=== PATIENT | male | born 1990 | race Caucasian/White ===

== ENCOUNTER 2020-10-23 15:26 | Inpatient (IN) | payer OTHER, SELFPAY ==
[2020-10-23] VITALS (7 sets, daily range): BP systolic 134–146; BP diastolic 83–118; PULSE 88–128; RESP 12–21; TEMP 36.4–36.8; O2SAT 98–100; BMI 24.2; BMI 23.3
[2020-10-23 15:48] LABS: Add Manual Diff / Slide Review NO; Basophils Absolute Auto 100 /uL (0-100); Basophils Percent Auto 0.5 % (0-2); Eosinophils Absolute Auto 100 /uL (0-450); Eosinophils Percent Auto 0.8 % (2-4); Hemoglobin 12.8 g/dL (13.5-17.5); Lymphocytes Absolute Auto 1500 /uL (1100-4500); Lymphocytes Percent Auto 11.1 % (25-40); Mean Corpuscular Hemoglobin 22.5 PG (26-34); Mean Corpuscular Volume 70.1 fL (80-100); Monocytes Absolute Auto 1200 /uL (0-900); Monocytes Percent Auto 8.5 % (3-14); Neutrophils Absolute Auto 10700 /uL (1500-7000); Neutrophils Percent Auto 79.1 % (50-75); Platelet Count 531 X10^3/uL (150-400); Red Cell Distribution Width 16.3 % (11.6-14.8); White Blood Cell Count 13.6 X10^3/uL (4.5-11.0)
[2020-10-23 16:00] LABS: Alanine Aminotransferase 18 IU/L (<50); Albumin 4.2 g/dL (3.5-5.0); Albumin Globulin Ratio 1.2 (1.0-2.8); Alkaline Phosphatase 69 U/L (38-126); Aspartate Aminotransferase 28 IU/L (17-59); Bilirubin Total 0.8 mg/dL (0.2-1.3); Blood Urea Nitrogen 10 mg/dL (9-20); Calcium 9.9 mg/dL (8.4-10.2); Carbon Dioxide 27 mmol/L (22-32); Chloride 95 mmol/L (98-107); Estimated Glomerular Filt Rate > 60.0 mL/min (>60); Globulin 3.4 g/dL (1.7-4.1); Glucose 107 mg/dL (70-100); HEMOLYSIS < 15 (0-50); Lipase 68 U/L (23-300); Potassium 4.3 mmol/L (3.4-5.1); Sodium 135 mmol/L (137-145); Total Protein 7.6 g/dL (6.3-8.2)
--- NOTE | 2020-10-23 16:05 | DI.RAD.S_ITS ---
PROCEDURE: XR ACUTE ABDOMEN SERIES INDICATIONS: abdominal pain TECHNIQUE: One view chest and two views of the abdomen were acquired. COMPARISON: None. FINDINGS: Surgical changes and devices: None. Chest: Lungs are clear. Heart size is normal. No pleural effusions. No pneumoperitoneum. Abdomen: Bowel gas pattern is normal. No suspicious calcifications. Visualized solid organ contours appear normal. Bones: No suspicious bony lesions. IMPRESSION: A nonobstructive bowel gas pattern is seen. If clinically appropriate, please consider a repeat plain film study or a dedicated CT of the abdomen and pelvis, if the patient's symptoms persist or worsen. Clear lungs. Dictated by: Dylan Teresa M.D. on 10/23/2020 at 15:18 Approved by: Dylan Teresa M.D. on 10/23/2020 at 15:20
[2020-10-23] MEDS: PANTOPRAZOLE 40 MG VIAL IV (16:16)
--- NOTE | 2020-10-23 18:07 | ED.ABDPAIN ---
HPI - Abdominal Pain General Chief Complaint: Abdominal Pain Stated Complaint: stomach issues/clenching pain Time Seen by Provider: 10/23/20 15:26 Source: patient Mode of arrival: Ambulatory Limitations: no limitations History of Present Illness HPI narrative: Patient is a 30-year-old male with history of acid reflux presenting with 3-4 days of abdominal pain and cramping. Says the last 2 is has gotten significantly worse. He has had decrease in appetite. It is in the center of his abdomen nonradiating. He sometimes is nauseated but no vomiting he had a normal bowel movement yesterday. He took some Tylenol a few days ago to see if it would help it has not and he has been taking some antacid medication to see if that would help his reflux which also has not. He denies any fever or chills. he is sometimes dizzy. Denies any chest pain MD complaint: abdominal pain Onset (ago): day(s) Related Data Allergies Allergy/AdvReac Type Severity Reaction Status Date / Time No Known Drug Allergies Allergy Verified 10/23/20 15:34 Review of Systems Review of Systems Narrative: GENERAL: Denies chills, fatigue, malaise, fever, sweats, travel HEENT: Denies sinus pain, ear pain, sore throat, difficulty swallowing, neck pain RESPIRATORY: Denies dyspnea, cough, wheezing, hemoptysis, sputum. CARDIOVASCULAR: Denies chest pain, palpitations, orthopnea, edema GASTROINTESTINAL: See HPI : Denies dysuria, frequency, incontinence, hematuria, urinary retention, flank pain. MUSCULOSKELETAL: Denies weakness, joint pain, or bony pain SKIN: No rash, no erythema, no pruritus NEUROLOGIC: Denies weakness, dizziness, headache, numbness, change in speech, confusion PSYCHIATRIC: No concerning psychosocial issues. 12 point review of systems is negative except for those stated above and HPI Patient History Medical History GERD (gastroesophageal reflux disease) Social History household members: spouse Smoking Status: Never smoker Smoking Status: Unknown if ever smoked alcohol intake frequency: 3 or more drinks per day Substance Use Type: does not use Exam Initial Vital Signs Initial Vital Signs: Vital Signs Temperature 97.7 F 10/23/20 15:34 Pulse Rate 118 H 10/23/20 15:34 Respiratory Rate 14 10/23/20 15:34 Blood Pressure 146/118 H 10/23/20 15:34 Pulse Oximetry 99 10/23/20 15:34 GENERAL: Well appearing 30-year-old male and in no acute distress. HEENT: Head atraumatic,EOMI, pupils reactive, face symmetric, moist mucous membranes CARDIOVASCULAR: Tachycardic regular no murmurs RESPIRATORY: Breath sounds equal bilaterally, no wheezes rales or rhonchi. ABDOMEN: Soft, periumbilical tenderness, no guarding around the Maldonado sign EXTREMITIES: Normal range of motion, no clubbing or edema. Neurovascularly intact NEUROLOGICAL: Alert and oriented x4.Normal gait and speech. SKIN: Warm, dry, no laceration, no petechiae, no rashes or lesions. Course Orders Ordered: ED Orders 10/23/20 15:30 Lactate (Lactic Acid) Stat 10/23/20 15:36 EKG-12 Lead Stat 10/23/20 15:39 Complete Blood Count AUTO DIFF Stat Comprehensive Metabolic Panel Stat Lipase Stat 10/23/20 16:05 XR acute abdomen series Stat 10/23/20 18:07 CT abdomen pelvis w con Stat 10/23/20 18:40 Urine Microscopic Stat 10/23/20 19:28 COVID19 - ADMIT ([employer] swab/PCR) Stat Acetaminophen (Acetaminophen 325 Mg Tablet) 650 mg PO Q6HR PRN PRN Reason: Fever/Mild Pain (1-3) Hydrocodone Bitart/Acetaminophen (Hydrocodone/Acet 5/325 Tablet) 1 tab PO Q4HR PRN PRN Reason: Pain, Moderate (4-6) Heparin Sodium (Porcine) (Heparin 5,000 Unit/Ml Vial) 5,000 unit SUBCUT BID [facility] Last Admin: 10/23/20 21:40 Dose: 5,000 unit Documented by: CHITRA Hydromorphone HCl (Hydromorphone 0.5 Mg Inj) 0.5 mg IV Q6H PRN PRN Reason: Pain, Moderate (4-6) Last Admin: 10/23/20 22:38 Dose: 0.5 mg Documented by: CHITRA Lactated Ringer's (Lactated Ringers) 1,000 mls @ 125 mls/hr IV CONT [facility] Last Infusion: 10/23/20 20:48 Dose: 125 mls/hr Documented by: Admin: 10/23/20 20:22 Dose: 125 mls/hr Documented by: ADELSO Levofloxacin (Levaquin) 500 mg in 100 mls @ 100 mls/hr IV Q24H [facility] Last Admin: 10/23/20 21:40 Dose: 100 mls/hr Documented by: CHITRA Ibuprofen (Ibuprofen 600 Mg Tablet) 600 mg PO Q6HR PRN PRN Reason: Fever/Mild Pain (1-3) Naloxone HCl (Naloxone 0.4 Mg/Ml Vial) 0.2 mg IV Q2MIN PRN PRN Reason: Opiate Reversal Pantoprazole Sodium (Pantoprazole Dr 20 Mg Tablet) 20 mg PO 0600 [facility] Discontinued Medications Sodium Chloride (Normal Saline 0.9%) 1,000 mls @ 1,000 mls/hr IV BOLUS ONE Stop: 10/23/20 19:06 Last Infusion: 10/23/20 19:39 Dose: 0 mls/hr Documented by: Admin: 10/23/20 18:14 Dose: 1,000 mls/hr Documented by: VANESSA Ketorolac Tromethamine (Ketorolac 30 Mg/Ml Vial) 30 mg IV NOW ONE Stop: 10/23/20 18:08 Last Admin: 10/23/20 18:13 Dose: 30 mg Documented by: VANESSA Pantoprazole Sodium (Pantoprazole 40 Mg Vial) 40 mg IV NOW ONE Stop: 10/23/20 16:06 Last Admin: 10/23/20 16:16 Dose: 40 mg Documented by: MOIRAFF Vital Signs Vital signs: Vital Signs - 8 hr 10/23/20 16:53 10/23/20 17:00 10/23/20 17:30 Pulse Rate 106 H 128 H 98 H Respiratory Rate 20 21 12 Blood Pressure 134/83 141/104 H Pulse Oximetry 100 100 100 10/23/20 18:00 Pulse Rate 106 H Respiratory Rate 19 Blood Pressure 143/110 H Pulse Oximetry 100 MDM - Abdominal Pain Lab Data Attestation: I reviewed the patient's lab results. Result diagrams: 10/23/20 15:39 10/23/20 15:39 Labs: Lab Results 10/23/20 10/23/20 10/23/20 Range/Units 15:30 15:39 15:39 WBC 13.6 H (4.5-11.0) X10^3/uL RBC 5.70 (4.5-5.9) X10^6/uL Hgb 12.8 L (13.5-17.5) g/dL Hct 40.0 L (41-53) % MCV 70.1 L (80-100) fL MCH 22.5 L (26-34) PG MCHC 32.0 (30-36) % RDW 16.3 H (11.6-14.8) % Plt Count 531 H (150-400) X10^3/uL Neut % (Auto) 79.1 H (50-75) % Lymph % (Auto) 11.1 L (25-40) % Arthur % (Auto) 8.5 (3-14) % Eos % (Auto) 0.8 L (2-4) % Baso % (Auto) 0.5 (0-2) % Neut # (Auto) 77645 H (7362-5814) /uL Lymph # (Auto) 1500 (7637-2087) /uL Arthur # (Auto) 1200 H (0-900) /uL Eos # (Auto) 100 (0-450) /uL Baso # (Auto) 100 (0-100) /uL Sodium 135 L (137-145) mmol/L Potassium 4.3 (3.4-5.1) mmol/L Chloride 95 L (98-107) mmol/L Carbon Dioxide 27 (22-32) mmol/L BUN 10 (9-20) mg/dL Creatinine 0.77 (0.66-1.25) mg/dL Estimated GFR > 60.0 (>60) mL/min BUN/Creatinine Ratio 13.0 (6-22) Glucose 107 H (70-100) mg/dL Lactate 1.9 (0.7-2.1) mmol/L Calcium 9.9 (8.4-10.2) mg/dL Total Bilirubin 0.8 (0.2-1.3) mg/dL AST 28 (17-59) IU/L ALT 18 (<50) IU/L Alkaline Phosphatase 69 (38-126) U/L Total Protein 7.6 (6.3-8.2) g/dL Albumin 4.2 (3.5-5.0) g/dL Globulin 3.4 (1.7-4.1) g/dL Albumin/Globulin Ratio 1.2 (1.0-2.8) Lipase 68 (23-300) U/L Urine RBC (0-5/HPF) Urine WBC (0-5/HPF) Ur Squamous Epith Cells (0-5/HPF) Calcium Oxalate Crystal Amorphous Sediment Urine Bacteria (None) Urine Mucus (Negative) Ur Culture Indicated? SARS-CoV-2 (PCR) (Negative) 10/23/20 10/23/20 Range/Units 18:40 19:28 WBC (4.5-11.0) X10^3/uL RBC (4.5-5.9) X10^6/uL Hgb (13.5-17.5) g/dL Hct (41-53) % MCV (80-100) fL MCH (26-34) PG MCHC (30-36) % RDW (11.6-14.8) % Plt Count (150-400) X10^3/uL Neut % (Auto) (50-75) % Lymph % (Auto) (25-40) % Arthur % (Auto) (3-14) % Eos % (Auto) (2-4) % Baso % (Auto) (0-2) % Neut # (Auto) (4607-8720) /uL Lymph # (Auto) (5059-2234) /uL Arthur # (Auto) (0-900) /uL Eos # (Auto) (0-450) /uL Baso # (Auto) (0-100) /uL Sodium (137-145) mmol/L Potassium (3.4-5.1) mmol/L Chloride (98-107) mmol/L Carbon Dioxide (22-32) mmol/L BUN (9-20) mg/dL Creatinine (0.66-1.25) mg/dL Estimated GFR (>60) mL/min BUN/Creatinine Ratio (6-22) Glucose (70-100) mg/dL Lactate (0.7-2.1) mmol/L Calcium (8.4-10.2) mg/dL Total Bilirubin (0.2-1.3) mg/dL AST (17-59) IU/L ALT (<50) IU/L Alkaline Phosphatase (38-126) U/L Total Protein (6.3-8.2) g/dL Albumin (3.5-5.0) g/dL Globulin (1.7-4.1) g/dL Albumin/Globulin Ratio (1.0-2.8) Lipase (23-300) U/L Urine RBC None seen (0-5/HPF) Urine WBC 0-1/hpf (0-5/HPF) Ur Squamous Epith Cells 0-1 /hpf (0-5/HPF) Calcium Oxalate Crystal Few H Amorphous Sediment 3+ Urine Bacteria None seen (None) Urine Mucus 2+ H (Negative) Ur Culture Indicated? Cult not indicated SARS-CoV-2 (PCR) Negative (Negative) Point of care testing: Urine Dip Bedside Urine Glucose Negative Bedside Urine Bilirubin ++ 2 Bedside Urine Ketone +++ 80 Urine Specific Lawrence 1.025 Bedside Urine Occult Blood - Negative Bedside Urine pH 6.0 Bedside Urine Protein +/- 15 Bedside Urine Urobilinogen - Negative Bedside Urine Nitrite - Negative Bedside Urine Leukocytes - Negative Esterase Imaging Data Abdominal x-ray: Radiologist's Impression: PROCEDURE: XR ACUTE ABDOMEN SERIES INDICATIONS: abdominal pain TECHNIQUE: One view chest and two views of the abdomen were acquired. COMPARISON: None. FINDINGS: Surgical changes and devices: None. Chest: Lungs are clear. Heart size is normal. No pleural effusions. No pneumoperitoneum. Abdomen: Bowel gas pattern is normal. No suspicious calcifications. Visualized solid organ contours appear normal. Bones: No suspicious bony lesions. IMPRESSION: A nonobstructive bowel gas pattern is seen. If clinically appropriate, please consider a repeat plain film study or a dedicated CT of the abdomen and pelvis, if the patient's symptoms persist or worsen. Clear lungs. Dictated by: Dylan Teresa M.D. on 10/23/2020 at 15:18 Approved by: Dylan Teresa M.D. on 10/23/2020 at 15:20 CT scan - abdomen/pelvis: Radiologist's Impression: ADDENDUMThis report includes an Addendum and supersedes previous reports for this exam. PROCEDURE: CT ABDOMEN PELVIS W CON INDICATIONS: ab pain TECHNIQUE: After the administration of intravenous contrast, axial sections acquired from the lung bases to the pubic symphysis. Coronal and sagittal reformats were performed. For radiation dose reduction, the following was used: automated exposure control, adjustment of mA and/or kV according to patient size. COMPARISON: [facility], CR, XR ACUTE ABDOMEN SERIES, 10/23/2020, 16:02. FINDINGS: Image quality: Excellent. Lung bases: Unremarkable. Heart: No significant findings. ABDOMEN: Liver: Unremarkable. Gallbladder: Unremarkable. Biliary ducts: Unremarkable. Pancreas: Within normal limits. Spleen: Unremarkable. Adrenal Glands: Unremarkable. Kidneys and Ureters: Unremarkable. Stomach and Bowel: Ileocolic intussusception measuring approximately 7 cm in length, (4/24). The cecum is thickened with suspected mural enhancement. There is thickening of the terminal ileum with mural enhancement and surrounding fat stranding. The upstream ileum is dilated for a short segment. The appendix is in part involved in the intussusception. The appendix is mildly dilated measuring at 0.9 cm proximally and approximately 1 cm distally. There may be mural enhancement involving the hepatic flexure. There is inflammatory change in the right pericolic gutter. There is a 2nd loop of small bowel in the pelvis which demonstrates fluid-filled lumen and adjacent fluid. This may also be involved in this inflammatory process. Peritoneum: No abnormal intraperitoneal fluid. There is a small amount of low-density free fluid in the pelvis. Ventral Wall: No hernias. Abdominal Nodes: Prominent mesenteric lymph nodes in the right lower quadrant. For example mesenteric node measuring 1.2 cm short axis diameter, (2/46). No retroperitoneal adenopathy by size criteria. Vessels: Aorta and inferior vena cava are normal in size. PELVIS: Pelvic Organs: Unremarkable. Bladder: Unremarkable. Pelvic Nodes: No enlarged lymph nodes. Miscellaneous: No hernias are seen. Bones: Unremarkable. IMPRESSION: 1. Ileocolic intussusception. This could be due to inflammatory process involving the bowel in the right lower quadrant. Other lead point such as a mass is also possibility. 2. Inflammatory change and thickening of the terminal ileum. Findings due to infectious/inflammatory etiology or possible inflammatory bowel disease. 3. The appendix is mildly dilated. Mild surrounding inflammatory change. Suspect that this may be secondary to the inflammatory change which is more pronounced in the terminal ileum. 3. Small volume of free fluid. Dictated by: Altaf Cardozo M.D. on 10/23/2020 at 19:13 Approved by: Altaf Cardozo M.D. on 10/23/2020 at 19:26 ADDENDUM: Exam findings were discussed with Serafin Fowler at time of dictation. Dictated by: Altaf Cardozo M.D. on 10/23/2020 at 19:54 Approved by: Altaf Cardozo M.D. on 10/23/2020 at 19:54 Addendum Dictated By:Altaf Cardozo MDAddendum Signed By:Addendum Cosigned By:DD/ TD/TT: 10/23/20 PROCEDURE: CT ABDOMEN PELVIS W CON INDICATIONS: ab pain TECHNIQUE: After the administration of intravenous contrast, axial sections acquired from the lung bases to the pubic symphysis. Coronal and sagittal reformats were performed. For radiation dose reduction, the following was used: automated exposure control, adjustment of mA and/or kV according to patient size. COMPARISON: [facility], CR, XR ACUTE ABDOMEN SERIES, 10/23/2020, 16:02. FINDINGS: Image quality: Excellent. Lung bases: Unremarkable. Heart: No significant findings. ABDOMEN: Liver: Unremarkable. Gallbladder: Unremarkable. Biliary ducts: Unremarkable. Pancreas: Within normal limits. Spleen: Unremarkable. Adrenal Glands: Unremarkable. Kidneys and Ureters: Unremarkable. Stomach and Bowel: Ileocolic intussusception measuring approximately 7 cm in length, (4/24). The cecum is thickened with suspected mural enhancement. There is thickening of the terminal ileum with mural enhancement and surrounding fat stranding. The upstream ileum is dilated for a short segment. The appendix is in part involved in the intussusception. The appendix is mildly dilated measuring at 0.9 cm proximally and approximately 1 cm distally. There may be mural enhancement involving the hepatic flexure. There is inflammatory change in the right pericolic gutter. There is a 2nd loop of small bowel in the pelvis which demonstrates fluid-filled lumen and adjacent fluid. This may also be involved in this inflammatory process. Peritoneum: No abnormal intraperitoneal fluid. There is a small amount of low-density free fluid in the pelvis. Ventral Wall: No hernias. Abdominal Nodes: Prominent mesenteric lymph nodes in the right lower quadrant. For example mesenteric node measuring 1.2 cm short axis diameter, (2/46). No retroperitoneal adenopathy by size criteria. Vessels: Aorta and inferior vena cava are normal in size. PELVIS: Pelvic Organs: Unremarkable. Bladder: Unremarkable. Pelvic Nodes: No enlarged lymph nodes. Miscellaneous: No hernias are seen. Bones: Unremarkable. IMPRESSION: 1. Ileocolic intussusception. This could be due to inflammatory process involving the bowel in the right lower quadrant. Other lead point such as a mass is also possibility. 2. Inflammatory change and thickening of the terminal ileum. Findings due to infectious/inflammatory etiology or possible inflammatory bowel disease. 3. The appendix is mildly dilated. Mild surrounding inflammatory change. Suspect that this may be secondary to the inflammatory change which is more pronounced in the terminal ileum. 3. Small volume of free fluid. Dictated by: Altaf Cardozo M.D. on 10/23/2020 at 19:13 ECG Data Attestation: I personally reviewed and interpreted this ECG as follows: Interpretation: Sinus tachycardia rate 103 p.r. interval 140 QRS [address] changes or T-wave inversions MDM Narrative Medical decision making narrative: Patient is noted to be quite tachycardic he is tender on exam but abdomen is soft. He is mild leukocytosis normal lactic acid. Pain is helped with Toradol. However decision to do CT based on exam and blood work. CT does fine in intussusceptions. Dr. Briones updated patient's symptoms test results and will admit patient Discharge Plan Departure Patient Disposition: Admitted As Inpatient Clinical Impression: Intussusception Admit Date/Time: 10/23/20 19:42 Admit Provider: Katia Briones
[2020-10-23] MEDS: KETOROLAC 30 MG/ML VIAL IV (18:13)
[2020-10-23] MEDS: SODIUM CHLORIDE 0.9% 1,000 ML 1000 ML IV (18:14)
[2020-10-23 18:20] LABS: Lactate (Lactic Acid) 1.9 mmol/L (0.7-2.1)
[2020-10-23 19:34] LABS: Bacteria Urine None Seen; RBC Urine None Seen (0-5/HPF)
[2020-10-23 19:56] LABS: Amorphous Sediment Urine 3+; Calcium Oxalate Crystals Urine Few; Culture Indicated Urine Cult Not Indicated; Mucus Urine 2+ (Negative); Squamous Epithelial Cell Urine 0-1 /HPF (0-5/HPF); WBC Urine 0-1/HPF (0-5/HPF)
[2020-10-23] MEDS: LACTATED RINGERS 1,000 ML 125 ML IV (20:22)
[2020-10-23 20:39] LABS: COVID19 - ADMIT (NP swab/PCR) Negative (Negative)
[2020-10-23] MEDS: HEPARIN 5,000 UNIT/ML VIAL 5000 UNIT SUBCUT (21:40)
[2020-10-23] MEDS: levoFLOXacin 500 MG/100 ML PIGGYBACK 100 MG IV (21:40)
--- NOTE | 2020-10-23 22:13 | PC.NURSE ---
Admit/Evening Shift Note- Patient arrived to room via stretcher from ER at 2050. Admit questiojns done, no home medications reported, physical assessment done, and skin check completed. Oriented patient to bed and bed controls, room, lights, menu, phone, bathroom, and call boyce/tv remote. Safety measures in place. Patient agrees to call for assistance. Call boyce and phone within reach. Will continue to monitor.
[2020-10-23] MEDS: HYDROMORPHONE 0.5 MG INJ IV (22:38)
[2020-10-24] VITALS (21 sets, daily range): BP systolic 117–165; BP diastolic 74–104; PULSE 80–118; RESP 9–18; TEMP 36.3–37.1; O2SAT 96–100; BMI 23.3
--- NOTE | 2020-10-24 | PATH_ITS ---
[facility] Accession Number: [id number] . 01 Material submitted: . PART A: body - RIGHT ILEUM; COLON; APPENDIX PART B: lymph node - THI COLONIC LYMPH NODE . 02 Diagnosis: A. Ileum and Colon with Appendix, Right Hemicolectomy: Adenocarcinoma, moderately to poorly differentiated; see Cancer Case Summary. Ileum with active inflammation and ulcer. Appendix with no diagnostic abnormality. Please see comment. . B. Pericolonic Lymph Nodes, Excision: Two lymph nodes negative for carcinoma. . CANCER CASE SUMMARY - COLON: Procedure: Right hemicolectomy. Tumor Site: Cecum, ascending colon. Tumor Size: 6.0 cm in greatest dimension. Macroscopic Tumor Perforation: Not identified. Histologic Type: Adenocarcinoma with mucinous features; please see comment. Histologic Grade: G2-G3 - moderately to poorly differentiated. Tumor Extension: Tumor invades through the muscularis propria into pericolorectal tissue. Margins: All margins are uninvolved by invasive carcinoma or dysplasia. Margins Examined: Proximal, distal, mesenteric. Treatment Effect: No known presurgical therapy. Lymphovascular Invasion: Not identified. Perineural Invasion: Not identified. Tumor Deposits: Not identified. Regional Lymph Nodes: Number of Lymph Nodes Involved: 0. Number of Lymph Nodes Examined: 7. Pathologic Stage Classification (pTNM, AJCC 8th Edition): Primary Tumor: pT3 Regional Lymph Nodes: pN0 Ancillary Studies: . IMMUNOHISTOCHEMISTRY TESTING FOR MISMATCH REPAIR PROTEINS: . MLH1: Loss of nuclear expression. MSH2: Intact nuclear expression. MSH6: Intact nuclear expression. PMS2: Loss of nuclear expression. Background nonneoplastic tissue/internal control with intact nuclear expression. . INTERPRETATION: Loss of nuclear expression of MLH1 and PMS2: testing for methylation of the MLH1 promoter and/or mutation of BRAF is indicated (the presence of a BRAF V600E mutation and/or MLH1 methylation suggests that the tumor is sporadic and germline evaluation is probably not indicated; absence of both MLH1 methylation and of BRAF V600E mutation suggests the possibility of Guzman syndrome, and sequencing and/or large deletion/duplication testing of germline MLH1 may be indicated)* . * There are exceptions to the above IHC interpretations. These results should not be considered in isolation, and clinical correlation with genetic counseling is recommended to assess the need for germline testing. . * This test was developed and its performance characteristics determined by [facility]. It has not been cleared or approved by the U.S. Food and Drug Administration. The FDA has determined that such clearance or approval is not necessary. This test is used for clinical purposes. It should not be regarded as investigational or for research. [facility] 10/30/2020 1626 Local . 02 Comment: Sampling of the ileum shows active ileitis with ulcers. There is no evidence of metaplasia, dysplasia, or granulomas. The features are most suggestive of changes secondary to intussusception/obstruction versus infection or drug/toxin-induced injury. Crohn's disease is not favored. . The colonic adenocarcinoma has prominent areas of mucin pools. That said, mucin pools comprise less than 50 percent of the sampled tumor, thus criteria for mucinous adenocarcinoma are not met. Only five pericolonic lymph nodes are identified within the pericolonic adipose tissue despite additional sampling. An additional two lymph nodes were received with specimen B (pericolonic lymph node), for a total of 7 lymph nodes examined. . Given the loss of MLH1 and PMS2 by immunohistochemical technique, MLH1 promotor methylation and BRAF mutation analysis will be performed, and results issued in an addendum. . As part of routine senior quality assurance specialist, Dr. Alcazar has reviewed automobile rental representative slides from this case and agrees with the diagnosis of adenocarcinoma. The finding of adenocarcinoma was reported to Dr. Briones via [facility] [place] by Dr. Zepeda on 10/29/2020. . 02 Electronically signed: . Craig Zepeda MD, PhD, Pathologist NPI- [id number] . 01 Gross description: . A. Specimen A is received in formalin labeled right ileum, colon and appendix and consists of a 6.0 cm in length x 3.5 cm in diameter portion of terminal ileum with an attached cecum and right colon measuring 12 cm in length x up to 7.5 cm in circumference. The serosa is valerio-pink and smooth with fibrinous adhesions and a moderate amount of attached mesenteric adipose tissue. The attached appendix measures 6.0 cm in length x 1.2 cm in diameter and displays a valerio mucosa and a lumen measuring 0.3 cm in diameter. The cecum and right colon have been previously opened in multiple areas and extremely disrupted. Further opening reveals a 6.0 x 6.0 cm valerio-pink to valerio-green mass with serpiginous borders located with the cecum and right colon, coming to within 9 cm from the proximal margin and 2.5 cm from the distal margin. The mass does not involve the ileocecal valve. Sectioning through the mass reveals extension through the muscularis propria, extending into the attached adipose tissue to a maximum depth of 3.0 cm. The mass comes to within 2.0 cm from the nearest mesenteric margin. The remaining cut surfaces are valerio-pink with normal mucosal folds. The wall thickness measures 0.3 cm. Sectioning through the attached adipose tissue reveals multiple candidate lymph nodes ranging from 0.2 to 0.8 cm. Real Estate Asset Manager sections are submitted. . A1 - Proximal margin, automobile rental representative perpendicular section (blue). A2 - Distal margin, automobile rental representative perpendicular section (blue). A3-A8 - Real Estate Asset Manager mass (A7-A8 bisected section). A9 - Area of ileocecal valve. A10 - Closest mesenteric margin (automobile rental representative perpendicular section, blue). A11 - Appendix, automobile rental representative cross section and bisected tip. A12 - Intact lymph nodes. A13-A16 - Real Estate Asset Manager adipose tissue and lymph nodes. A18-A27 - Additional sections of adipose tissue. . B. Specimen B is received in formalin labeled pericolonic lymph node and consists of a 3.5 x 2.5 x 2.0 cm valerio-yellow fragment of adipose tissue, which is sectioned to reveal two lymph nodes measuring 1.5 x 1.0 x 0.8 cm and 2.4 x 1.5 x 1.2 cm. The lymph nodes are entirely submitted. . B1 - Small bisected lymph node. B2-B3 - Larger serially sectioned lymph node. ([id number]) /[facility] 10/30/2020 1707 Local . 02 Pathologist provided ICD-10: C18.9 . 02 CPT . 061894, [id number] Performed at: 01 [facility] [address] [place] [address] [address], [place], [place] [id number] MD Rupert Saucedo MD Phone: [phone] Performed at: 02 [facility] [address] [place] [id number] MD Elisa Alcazar MD Phone: [phone]
[2020-10-24] MEDS: PANTOPRAZOLE DR 20 MG TABLET PO (05:23)
[2020-10-24] MEDS: HYDROCODONE/ACET 5/325 TABLET 1 TAB PO ×3 (05:23→20:31)
[2020-10-24] MEDS: LACTATED RINGERS 1,000 ML 125 ML IV ×2 (05:29→20:32)
[2020-10-24 06:23] LABS: Add Manual Diff / Slide Review NO; Basophils Absolute Auto 100 /uL (0-100); Basophils Percent Auto 0.6 % (0-2); Eosinophils Absolute Auto 200 /uL (0-450); Eosinophils Percent Auto 2.1 % (2-4); Hematocrit 34.7 % (41-53); Hemoglobin 10.8 g/dL (13.5-17.5); Lymphocytes Absolute Auto 1300 /uL (1100-4500); Lymphocytes Percent Auto 15.7 % (25-40); Mean Corpuscular HGB Conc 31.1 % (30-36); Mean Corpuscular Hemoglobin 22.2 PG (26-34); Mean Corpuscular Volume 71.3 fL (80-100); Monocytes Absolute Auto 800 /uL (0-900); Monocytes Percent Auto 9.5 % (3-14); Neutrophils Absolute Auto 5900 /uL (1500-7000); Neutrophils Percent Auto 72.1 % (50-75); Platelet Count 408 X10^3/uL (150-400); Red Blood Cell Count 4.87 X10^6/uL (4.5-5.9); Red Cell Distribution Width 16.2 % (11.6-14.8); White Blood Cell Count 8.2 X10^3/uL (4.5-11.0)
[2020-10-24 06:28] LABS: BUN Creatinine Ratio 17.6 (6-22); Blood Urea Nitrogen 13 mg/dL (9-20); Calcium 9.1 mg/dL (8.4-10.2); Carbon Dioxide 28 mmol/L (22-32); Chloride 99 mmol/L (98-107); Estimated Glomerular Filt Rate > 60.0 mL/min (>60); Glucose 75 mg/dL (70-100); HEMOLYSIS < 15 (0-50); Potassium 4.4 mmol/L (3.4-5.1); Sodium 134 mmol/L (137-145)
[2020-10-24] MEDS: HYDROMORPHONE 0.5 MG INJ IV ×3 (06:53→21:39)
[2020-10-24] MEDS: metroNIDAZOLE 500 MG TABLET PO (08:29)
--- NOTE | 2020-10-24 08:45 | P.HP_ITS ---
History of Present Illness History of Present Illness Date Patient Seen: 10/24/20 Time Patient Seen: 08:05 Date of Onset of Symptoms: 10/21/20 Chief complaint: stomach issues/clenching pain Narrative: Patient presents with right sided abdominal pain crampy in nature 4- 8/10 for >48 hrs. Some loose stools over the last month and dyspepsia. No chronic diarrhea or blood in stool. He is adopted and isn't aware of family hx. No fever, chills or emesis. CT scan shows intussusception of ileocolic junction. Stranding that could represent inflammation. No evidence of appendicitis. Patient History Medical History GERD (gastroesophageal reflux disease) Family & Social History Social History: household members spouse Prior Living Arrangements House Safety & Behavioral: Feels Safe in Current Yes Environment Been Physically Hurt or No Threatened By a Person Suicidal Ideation Description None Suicide Plan Description No Plan Tobacco & Substance use: Smoking Status Never smoker alcohol intake frequency 0-2 drinks per day Substance Use Type does not use Meds Home Medications and Allergies Home Medications Medication Instructions Recorded Confirmed Type No Known Home Medications 10/24/20 10/24/20 History Allergies Allergy/AdvReac Type Severity Reaction Status Date / Time No Known Drug Allergies Allergy Verified 10/23/20 15:34 Review of Systems Review of Systems ROS: Yes All systems reviewed with the patient and are negative except as otherwise documented Exam Vital Signs (past 8 hours): - 10/24/20 05:00 10/24/20 07:35 Temperature 97.6 F 97.8 F Pulse Rate 80 84 Respiratory Rate 16 16 Blood Pressure 145/93 H 139/90 Pulse Oximetry 100 99 Oxygen Delivery Method Room Air Oxygen Flow Rate 0 Const General: cooperative and healthy appearing [facility] Head: normal to inspection Ears: hearing grossly normal bilaterally Eyes General: appearance normal, both eyes and all related structures Sclera: sclerae normal Neck Neck: trachea midline Chest Chest: normal inspection of the chest Resp Effort & Inspection: normal respiratory effort and able to speak in complete sentences Cardio Rate: regular rate Rhythm: regular rhythm GI Inspection: normal to inspection Palpation: soft and tender (right sided tenderness associated w a fullness) Skin General: no rashes or lesions noted Wounds: no wounds Neuro General: patient alert and patient oriented x3 Cognition: normal cognition Extrem General: normal to inspection and full ROM Psych Appearance: grossly normal Speech and Movement: speech and movement normal Judgment: judgment good Objective Labs Result Diagrams: 10/24/20 05:39 10/24/20 05:39 Labs: Laboratory Results - last 24 hr 10/23/20 10/23/20 10/23/20 15:30 15:39 15:39 WBC 13.6 H RBC 5.70 Hgb 12.8 L Hct 40.0 L MCV 70.1 L MCH 22.5 L MCHC 32.0 RDW 16.3 H Plt Count 531 H Neut % (Auto) 79.1 H Lymph % (Auto) 11.1 L [place] % (Auto) 8.5 Eos % (Auto) 0.8 L Baso % (Auto) 0.5 Neut # (Auto) 66975 H Lymph # (Auto) 1500 [place] # (Auto) 1200 H Eos # (Auto) 100 Baso # (Auto) 100 Sodium 135 L Potassium 4.3 Chloride 95 L Carbon Dioxide 27 BUN 10 Creatinine 0.77 Estimated GFR > 60.0 BUN/Creatinine Ratio 13.0 Glucose 107 H Lactate 1.9 Calcium 9.9 Total Bilirubin 0.8 AST 28 ALT 18 Alkaline Phosphatase 69 Total Protein 7.6 Albumin 4.2 Globulin 3.4 Albumin/Globulin Ratio 1.2 Lipase 68 Urine RBC Urine WBC Ur Squamous Epith Cells Calcium Oxalate Crystal Amorphous Sediment Urine Bacteria Urine Mucus Ur Culture Indicated? SARS-CoV-2 (PCR) 10/23/20 10/23/20 10/24/20 18:40 19:28 05:39 WBC RBC Hgb Hct MCV MCH MCHC RDW Plt Count Neut % (Auto) Lymph % (Auto) [place] % (Auto) Eos % (Auto) Baso % (Auto) Neut # (Auto) Lymph # (Auto) [place] # (Auto) Eos # (Auto) Baso # (Auto) Sodium 134 L Potassium 4.4 Chloride 99 Carbon Dioxide 28 BUN 13 Creatinine 0.74 Estimated GFR > 60.0 BUN/Creatinine Ratio 17.6 Glucose 75 Lactate Calcium 9.1 Total Bilirubin AST ALT Alkaline Phosphatase Total Protein Albumin Globulin Albumin/Globulin Ratio Lipase Urine RBC None seen Urine WBC 0-1/hpf Ur Squamous Epith Cells 0-1 /hpf Calcium Oxalate Crystal Few H Amorphous Sediment 3+ Urine Bacteria None seen Urine Mucus 2+ H Ur Culture Indicated? Cult not indicated SARS-CoV-2 (PCR) Negative 10/24/20 05:39 WBC 8.2 RBC 4.87 Hgb 10.8 L Hct 34.7 L MCV 71.3 L MCH 22.2 L MCHC 31.1 RDW 16.2 H Plt Count 408 H Neut % (Auto) 72.1 Lymph % (Auto) 15.7 L [place] % (Auto) 9.5 Eos % (Auto) 2.1 Baso % (Auto) 0.6 Neut # (Auto) 5900 Lymph # (Auto) 1300 [place] # (Auto) 800 Eos # (Auto) 200 Baso # (Auto) 100 Sodium Potassium Chloride Carbon Dioxide BUN Creatinine Estimated GFR BUN/Creatinine Ratio Glucose Lactate Calcium Total Bilirubin AST ALT Alkaline Phosphatase Total Protein Albumin Globulin Albumin/Globulin Ratio Lipase Urine RBC Urine WBC Ur Squamous Epith Cells Calcium Oxalate Crystal Amorphous Sediment Urine Bacteria Urine Mucus Ur Culture Indicated? SARS-CoV-2 (PCR) Assessment & Plan Assessment & Plan narrative: ileocolic intussusception Plan: OR for Xlap and probable ielocolic resection COVID-19 COVID-19 status: Negative Time Spent With Patient Time with patient: Greater than 35 minutes Quality VTE Deep Vein Thrombosis/Pulmonary Embolism Present on Admission: No
--- NOTE | 2020-10-24 09:04 | PC.NURSE ---
Day shift: Pt off unit for procedure at this time. (0900).
[2020-10-24] MEDS: LACTATED RINGERS 1,000 ML 42 ML IV (09:41)
[2020-10-24] MEDS: ACETAMINOPHEN IV 1,000 MG/100 ML VIAL 400 MG IV (09:55)
--- NOTE | 2020-10-24 10:17 | SUR.OPER ---
Supine on padded OR bed, head on pillow, arms secured on padded arm boards at <90 degrees abduction, legs uncrossed, safety belt at thigh, tape over blanket over lower legs.
--- NOTE | 2020-10-24 11:25 | PM.OP.1 ---
Operative Date/Time/Diagnoses Date of procedure: 10/24/20 Time of procedure: 11:25 Pre-op diagnosis: ileocolic intussusception Post-op diagnosis: same Procedure & Clinicians Procedure: Right colectomy Same procedure as scheduled: Yes Indications: ileocolic intussusception Surgeon: Katia Briones Click Yes if Unassisted: Yes Anesthesia Type: General Operative Notes Findings: ileocolic intussusection with enlarged lymph node. Tumor vs fibrosis grossly Closure Type: primary Specimen(s): other (right colon to include appendix, right colic lymphnode) Estimated Blood Loss (mL): 30 Blood products transfused: none Procedure in detail: Preop diagnosis: Ileocolic intussusception Postop diagnosis: Same Operative procedure: Right colectomy to include appendix. Surgeon: Yajaira Briones MD Anesthetic: General Findings: On reducible right ileocolic intussusception. Soft enlarged lymph node associated with the intussusception. Specimen opened on the back table, concerning for intramural mass versus extensive fibrosis. Procedure: Patient is placed in a supine position. Prepped and draped in sterile fashion to expose his abdomen. Lower midline incision was created using electrocautery and blunt dissection. I was able to mobilize the right colon with electrocautery and blunt dissection. Unable to completely reduce the intussusception. SUSANNA stapling device was used for resection at the terminal ileum. And again at the distal right colon. LigaSure was used to take down the mesentery with excellent hemostasis. I then performed a [id number] reanastomosis again using stapling device with an over-sew of interrupted 3-0 silk. Mesenteric defect was closed with a running 2-0 Vicryl. Abdomen is irrigated to a clear return. Mesentery was pulled down across the exposed bowel prior to closure. Closure consisted of running looped 0 PDS. Subcutaneous tissue was irrigated and closed with 4-0 Vicryl skin only. Steri-Strips and sterile dressings were placed. Patient was awakened, extubated, taken to recovery room stable condition. Needle, instrument, sponge counts were correct. Blood loss: 30 mL Specimen: Right colon and associated lymph node
[2020-10-24] MEDS: HYDROMORPHONE 2 MG INJ IV ×5 (11:55→12:38)
--- NOTE | 2020-10-24 12:03 | SUR.PHASEI ---
Dr Guerrero notified of continued elevated BP. Physician to place PRN order for pt.
[2020-10-24] MEDS: LABETALOL 20 MG/4 ML SYRINGE 10 MG IV (12:12)
--- NOTE | 2020-10-24 12:44 | CM.IDA ---
Addendum entered by JASON Delgado 10/24/20 13:04: Introduced self to spouse Jonelle, patient just entering his room back from the OR. Jonelle expects patient to return home w/her to assist when medically stable. Spouse asks about completion of FMLA ppk to excuse patient's absence from his job at [employer]..this DAY CARE CENTER DIRECTOR suggests spouse ask HR to fax FMLA ppk to Care Management F [phone]; hopefully we can help facilitate a signature from Dr Briones. If not, patient and spouse can have this completed and signed in the outpatient setting. Spouse appreciative Original Note: Initial DCP Assessment Note Pt is a 30 yo male, resident of [place], presents with 3-4 days of abdominal pain and cramping. Says the last 2 is has gotten significantly worse. ileocolic intussusception (intestine sliding into an adjacent part of the intestine) found on imaging and patient off the floor this morning for surgery by Dr Briones PCP: Not listed Payer: [place] Reviewed chart, pt lives w/spouse and plans to return upon DC, likely w/close outpatient f/u recommended. Patient has no home medications, indp. and active at baseline. No needs expected from DC planning team although will remain available in case this changes before DC. JASON Delgado Discharge Planning/Care Management CM Discharge Assessment Start: 10/24/20 12:42 Freq: Status: Active Protocol: Document 10/24/20 12:42 HILL (Rec: 10/24/20 12:44 HILL [id number]) Discharge Planning Assessment Assigned Customer Relations Consultant JASON Talley DPOA/Assigned Designee Name Jonelle Navarrete, spouse Contact Information [phone] Advance Directives? No Advance Directives on File No History Provided By Patient Prior Living Arrangements House Household Members spouse Type of transporation used prior to Drives own vehicle admit Independent with ADL's Yes Is patient alert and oriented? Yes Barriers to Discharge No Discharge Plan Home Transportation Arrangement Family Referrals Initiated None needed
--- NOTE | 2020-10-24 14:14 | CM.DPNOTE ---
Received FMLA papers from [employer] on 10/24/20. Gave one copy to pt and faxed the other to [employer], ext. [phone]. Received fax confirmation. Carol Horn CM Asst.
[2020-10-24] MEDS: BENZOCAINE/MENTHOL 1 LOZ PKT 1 EACH PO ×2 (16:48→21:40)
[2020-10-25] MEDS: HYDROCODONE/ACET 5/325 TABLET 1 TAB PO ×5 (00:21→23:37)
[2020-10-25] MEDS: HYDROMORPHONE 0.5 MG INJ IV ×4 (02:42→20:47)
[2020-10-25] MEDS: LACTATED RINGERS 1,000 ML 125 ML IV ×3 (03:34→19:12)
[2020-10-25 04:00] VITALS: BP 127/76; PULSE 86; RESP 16; TEMP 36.2; O2SAT 99
[2020-10-25] MEDS: PANTOPRAZOLE DR 20 MG TABLET PO (06:19)
[2020-10-25] MEDS: KETOROLAC 30 MG/ML VIAL 15 MG IV (07:07)
--- NOTE | 2020-10-25 07:23 | PC.NURSE ---
0640 Pt. C/O back of his right shoulder pain described as shooting pain & requested to have indwelling catheter. Dr. Briones notified ordered Toradol 15 mg. IV[address] x[address] indwelling uriarte cath. was not able to place urinary catheter. Patient was C/O severe pain when I tried to advance the catheter. Will report to day RN. Bladder scanned earlier showed 306 ml.
[2020-10-25] MEDS: BENZOCAINE/MENTHOL 1 LOZ PKT 1 EACH PO ×2 (07:44→12:01)
--- NOTE | 2020-10-25 08:25 | PM.PN.1 ---
Subjective Subjective Date Patient Seen: 10/25/20 Time Patient Seen: 08:25 Interval history: POD#1 from right colectomy due to intussusception. Pathology pending. Urinary retention shoulder pain likely irritation of diaphragm. Exam Vital Signs (past 8 hours): - 10/25/20 04:00 Temperature 97.2 F L Pulse Rate 86 Respiratory Rate 16 Blood Pressure 127/76 Pulse Oximetry 99 Oxygen Delivery Method Room Air Oxygen Flow Rate 0 Narrative Exam Narrative: wound looks good, dry and intact. abdomen is soft and non distended. incisional tenderness. Objective Labs Result Diagrams: 10/24/20 05:39 10/24/20 05:39 [facility] Medical History GERD (gastroesophageal reflux disease) Social History household members: spouse Smoking Status: Never smoker Assessment & Plan Assessment & Plan narrative: s/p right colectomy: advance to clear liquids. adjusted pain meds to scheduled celebrex and tylenol urinary retention: placement of 14 fr uriarte (report of resistence with 16 fr). Ativan and topical lidocaine. shoulder pain responded to tordal. Await pathology. Time Spent With Patient Time with patient: 15-24 minutes Quality VTE Deep Vein Thrombosis/Pulmonary Embolism Present on Admission: No
[2020-10-25 08:45] VITALS: BP 128/81; PULSE 91; RESP 16; TEMP 36.9; O2SAT 99
[2020-10-25] MEDS: LIDOCAINE 5% OINT 35 GM 1 APPLIC TOP (09:19)
[2020-10-25] MEDS: LORazepam 2 MG/ML INJ 1 MG IV (09:22)
[2020-10-25] MEDS: HEPARIN 5,000 UNIT/ML VIAL 5000 UNIT SUBCUT ×2 (09:27→20:47)
[2020-10-25] MEDS: CELECOXIB 100 MG CAPSULE 200 MG PO ×2 (09:27→20:47)
[2020-10-25] MEDS: ACETAMINOPHEN 325 MG TABLET 650 MG PO ×3 (11:23→23:37)
[2020-10-25 13:28] VITALS: BP 129/82; PULSE 95; RESP 16; TEMP 36.6; O2SAT 100
--- NOTE | 2020-10-25 13:32 | PC.NURSE ---
Day shift: Pt tolerating ice water and he ate one of the Jello's from [facility]. Obed remains patent w/phyllis output. IV fluids per JUL. Dressing CDI. Pt denies passing any flatus at this time. ([id number]).
[2020-10-25 17:29] VITALS: BP 133/94; PULSE 118; RESP 18; TEMP 37; O2SAT 100
[2020-10-25 20:42] VITALS: BP 135/89; PULSE 96; RESP 18; TEMP 37.6; O2SAT 98
[2020-10-25 23:40] VITALS: BP 133/77; PULSE 102; RESP 16; TEMP 36.8; O2SAT 97
[2020-10-26] VITALS (7 sets, daily range): BP systolic 132–136; BP diastolic 77–94; PULSE 91–111; RESP 16–21; TEMP 36.5–37; O2SAT 97–99
[2020-10-26] MEDS: LACTATED RINGERS 1,000 ML 125 ML IV ×3 (02:52→18:00)
[2020-10-26] MEDS: HYDROMORPHONE 0.5 MG INJ IV ×2 (03:52→16:15)
[2020-10-26] MEDS: ACETAMINOPHEN 325 MG TABLET 650 MG PO ×4 (05:57→23:59)
[2020-10-26] MEDS: PANTOPRAZOLE DR 20 MG TABLET PO (05:57)
--- NOTE | 2020-10-26 08:10 | CM.MNRNOTE ---
Addendum entered by Jimenez Baron R.N. 10/26/20 14:18: Surgical site clean dry and intact. Addendum entered by Jimenez Baron R.N. 10/26/20 14:15: Pt tolerated sitting up and eating lunch in recliner chair. Pain at a 4/10 and tolerable. Pt got up and walked [facility] per plan agreed to earlier. Pt plans to walk twice on evening shift. Pt tolerated walk well. Presently napping at this time. continues at bedside. Addendum entered by Jimenez Baron R.N. 10/26/20 11:49: Pt rec'd 5mg Oxycondone at about 10:50 with the plan to get him up to the chair in his room at 12:20. Pt talib. activity well and is now sitting up for his cliq. lunch. continues attentive in room. Original Note: Pt rouses to activity in room. Pt grimacing occasionally. Encouraged to breath instead of holding breath if in pain. Pt restful, closes eyes and relaxes when not talked to. continues at bedside.
--- NOTE | 2020-10-26 09:17 | P.PN_ITS ---
Subjective Subjective Date Patient Seen: 10/26/20 Time Patient Seen: 09:18 Interval history: Patient has no nausea, has not passed flatus. Exam Vital Signs (past 8 hours): - 10/26/20 05:27 10/26/20 09:12 Temperature 97.8 F 97.7 F Pulse Rate 92 H 96 H Respiratory Rate 16 16 Blood Pressure 132/84 134/83 Pulse Oximetry 97 98 Oxygen Delivery Method Room Air Oxygen Flow Rate 0 Narrative Exam Narrative: abdomen is distended, soft, incisional tenderness, no infection. Labs are appropriate. Urine still dark. Objective Labs Result Diagrams: 10/24/20 05:39 10/24/20 05:39 [facility] Medical History GERD (gastroesophageal reflux disease) Social History household members: spouse Smoking Status: Never smoker Assessment & Plan Assessment & Plan narrative: S/p right colectomy no complication Urinary retention with uriarte in place. clear liquid diet Plan: ambulate advance diet if passing gas Quality VTE Deep Vein Thrombosis/Pulmonary Embolism Present on Admission: No
[2020-10-26] MEDS: HEPARIN 5,000 UNIT/ML VIAL 5000 UNIT SUBCUT ×2 (09:22→20:10)
[2020-10-26] MEDS: CELECOXIB 100 MG CAPSULE 200 MG PO ×2 (09:22→20:10)
[2020-10-26] MEDS: OXYCODONE IR 5 MG TABLET PO ×3 (10:26→23:58)
--- NOTE | 2020-10-26 11:38 | CM.DPC ---
DCP Cont: Patient was seen by surgeon today. He has not yet been passing gas, he still has uriarte in place. He is encouraged to ambulate. Patient is independent at his baseline, he resides in [place], on [facility], with his spouse. According to Mely GOMEZ, assessment, patient is employed at [employer]. P: DCP to continue to follow, and will be available for any resources needed. Ansley Francis RN/Physician Compensation Analyst
[2020-10-26] MEDS: OXYCODONE IR 10 MG TABLET PO (20:10)
[2020-10-27] MEDS: LACTATED RINGERS 1,000 ML 125 ML IV (01:42)
[2020-10-27] MEDS: HYDROMORPHONE 0.5 MG INJ IV (01:56)
--- NOTE | 2020-10-27 02:40 | PC.NURSE ---
Patient c/o testicular pain. I checked uriarte, UOP draining sans difficulty. Gave folded hand towel to support under this area. Visualized testicles that patient thought felt larger than usual. Never having seen prior to complaint, scrotum seemed WNL. No other swelling in extremites, face noted. Does have IVF currently running. Will recheck.
[2020-10-27] MEDS: ACETAMINOPHEN 325 MG TABLET 650 MG PO ×4 (05:46→23:47)
[2020-10-27] MEDS: PANTOPRAZOLE DR 20 MG TABLET PO (05:47)
[2020-10-27 06:01] VITALS: BP 140/87; PULSE 106; RESP 16; TEMP 36.6; O2SAT 99
--- NOTE | 2020-10-27 06:40 | PC.NURSE ---
discontinued IVF at 0635, Came up as new order, I acknowledged it. On JUL states was discontinued order 10/23.
[2020-10-27 06:46] LABS: Add Manual Diff / Slide Review NO; Basophils Absolute Auto 0 /uL (0-100); Basophils Percent Auto 0.6 % (0-2); Eosinophils Absolute Auto 200 /uL (0-450); Hematocrit 27.7 % (41-53); Hemoglobin 8.6 g/dL (13.5-17.5); Lymphocytes Absolute Auto 700 /uL (1100-4500); Mean Corpuscular HGB Conc 31.1 % (30-36); Mean Corpuscular Volume 70.8 fL (80-100); Monocytes Absolute Auto 700 /uL (0-900); Monocytes Percent Auto 10.6 % (3-14); Neutrophils Absolute Auto 5100 /uL (1500-7000); Neutrophils Percent Auto 75.8 % (50-75); Platelet Count 422 X10^3/uL (150-400); Red Blood Cell Count 3.91 X10^6/uL (4.5-5.9); Red Cell Distribution Width 16.1 % (11.6-14.8); White Blood Cell Count 6.7 X10^3/uL (4.5-11.0)
[2020-10-27] MEDS: CELECOXIB 100 MG CAPSULE 200 MG PO ×2 (09:08→21:21)
[2020-10-27] MEDS: HEPARIN 5,000 UNIT/ML VIAL 5000 UNIT SUBCUT ×2 (09:10→21:21)
--- NOTE | 2020-10-27 09:31 | PM.PN.1 ---
Subjective Subjective Date Patient Seen: 10/27/20 Time Patient Seen: 09:31 Interval history: Bloody BM overnight. Hct 27% this am and likely dilutional (blood being from surgery). Exam Vital Signs (past 8 hours): - 10/27/20 06:01 Temperature 97.8 F Pulse Rate 106 H Respiratory Rate 16 Blood Pressure 140/87 Pulse Oximetry 99 Oxygen Delivery Method Room Air Oxygen Flow Rate 0 Narrative Exam Narrative: abodmen is decreased distension, incision has no infection, well approximated. Objective Labs Result Diagrams: 10/27/20 05:30 10/24/20 05:39 Labs: Laboratory Results - last 24 hr 10/27/20 05:30 WBC 6.7 RBC 3.91 L Hgb 8.6 L Hct 27.7 L MCV 70.8 L MCH 22.0 L MCHC 31.1 RDW 16.1 H Plt Count 422 H Neut % (Auto) 75.8 H Lymph % (Auto) 10.0 L [place] % (Auto) 10.6 Eos % (Auto) 3.0 Baso % (Auto) 0.6 Neut # (Auto) 5100 Lymph # (Auto) 700 L [place] # (Auto) 700 Eos # (Auto) 200 Baso # (Auto) 0 PFSH Medical History GERD (gastroesophageal reflux disease) Social History household members: spouse Smoking Status: Never smoker Assessment & Plan Assessment & Plan narrative: Return of GI function, bloody BM last evening likely old blood from surgery Plan: remove uriarte and watch for urinary retention advance diet as tolerated repeat hct at 1530 and again in am Anticipate discharge in 1-2 days. Quality VTE Deep Vein Thrombosis/Pulmonary Embolism Present on Admission: No
[2020-10-27 10:00] VITALS: BP 134/91; PULSE 97; RESP 20; TEMP 36.8; O2SAT 97
--- NOTE | 2020-10-27 10:51 | PC.NURSE ---
Addendum entered by Jimenez Baron R.N. 10/27/20 13:30: Continues to progress. Less pain, more comfortable with uriarte out not yet needing to void. continues at bedside. Original Note: Dr. Briones in to see Pt. discuss plan of care. Uriarte d/c'd. continues at bedside. Pt taking full liq. b'fast. Tolerating well.
--- NOTE | 2020-10-27 12:48 | CM.DPC ---
DCP Cont: Met with patient and spouse, Jonelle, who has been at bedside. Introduced self and role. Patient was sitting up in bed, had finished some of his lunch. Catheter was discontinued today, and he being monitored for retention. , Jonelle, indicated that they have [facility] paperwork, and will work on getting this signed by surgeon at discharge, for patient's job. Confirmed that he works for [employer]. Asked patient if he has a primary care provider. 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 Confirmed that he does have stern. Asked him if he was interested in any resources to get established with a primary care provider, as [facility] is accepting new patients at some of their branches, as well as the providers here in [place] at [facility]. He stated, he would like to think it over at this time. P: DCP to continue to check in and be available for any resources. Patient should be able to go home when he is medically stable. Ansley Francis RN/Strategic Sourcing Consultant
[2020-10-27 14:00] VITALS: BP 144/77; PULSE 91; RESP 22; TEMP 36.7; O2SAT 99
[2020-10-27 15:07] LABS: Hematocrit 27.5 % (41-53)
[2020-10-27 15:55] VITALS: BP 133/81; PULSE 81; RESP 19; TEMP 36.3; O2SAT 96
[2020-10-27 19:50] VITALS: BP 142/93; PULSE 93; TEMP 36.7; O2SAT 98
[2020-10-27] MEDS: OXYCODONE IR 5 MG TABLET PO ×2 (21:22→23:07)
[2020-10-27 23:59] VITALS: BP 137/90; PULSE 81; RESP 16; TEMP 36.6; O2SAT 99
--- NOTE | 2020-10-28 03:01 | PC.NURSE ---
patient is alert and oriented. Breath sounds CTA with RA sat of 99%. HRR. Denies nausea. BT hypoactive but patient reports he had watery stools earlier on previous shift. Abdomen is slightly tender and mildly distended. Denies dysuria, frequency or urgency with urination after catheter removed yesterday. Is able to move self in bed and states he is up to bathroom independently. Complained of incisional pain at shift change and was medicated with Oxycodone and at 0000 stated pain was down to 3/10 and was given scheduled Tylenol. Abdominal incision is well approximated with intact steri-strips and old drainage noted. Refusing SCD's so reminded to ankle wave and verbalized understanding. Fall risk score is low. Spouse rooming in.
[2020-10-28 05:44] VITALS: BP 130/88; PULSE 76; RESP 16; TEMP 36.3; O2SAT 97
[2020-10-28 05:51] LABS: Hematocrit 26.7 % (41-53)
[2020-10-28] MEDS: ACETAMINOPHEN 325 MG TABLET 650 MG PO (06:07)
[2020-10-28] MEDS: PANTOPRAZOLE DR 20 MG TABLET PO (06:07)
[2020-10-28 08:00] VITALS: BP 146/93; PULSE 87; RESP 16; TEMP 36.6; O2SAT 97
[2020-10-28] MEDS: OXYCODONE IR 5 MG TABLET PO (09:30)
[2020-10-28] MEDS: CELECOXIB 100 MG CAPSULE 200 MG PO (09:30)
[2020-10-28] MEDS: SODIUM CHLORIDE 0.9% FLUSH 10 ML IV (09:31)
[2020-10-28] MEDS: HEPARIN 5,000 UNIT/ML VIAL 5000 UNIT SUBCUT (09:31)
--- NOTE | 2020-10-28 09:31 | P.PN_ITS ---
Subjective Subjective Date Patient Seen: 10/28/20 Time Patient Seen: 09:31 Interval history: ready to go home Exam Vital Signs (past 8 hours): - 10/28/20 05:44 10/28/20 08:00 Temperature 97.4 F L 97.9 F Pulse Rate 76 87 Respiratory Rate 16 16 Blood Pressure 130/88 146/93 H Pulse Oximetry 97 97 Oxygen Delivery Method Room Air Oxygen Flow Rate 0 Narrative Exam Narrative: abdomen soft, steri strips intact, no infection Objective Labs Result Diagrams: 10/28/20 05:25 10/24/20 05:39 Labs: Laboratory Results - last 24 hr 10/27/20 10/28/20 14:57 05:25 Hct 27.5 L 26.7 L PFSH Medical History GERD (gastroesophageal reflux disease) Social History household members: spouse Smoking Status: Never smoker Assessment & Plan Assessment & Plan narrative: Discharge home with no restriction on diet, pathology not back. Follow up 1-2 weeks at [facility]. No heavy lifting for 4 weeks total, greater than 15 lbs. Quality VTE Deep Vein Thrombosis/Pulmonary Embolism Present on Admission: No
--- NOTE | 2020-10-28 09:33 | P.DS_ITS ---
History of Present Illness History of Present Illness Chief complaint: stomach issues/clenching pain Narrative: Patient presents with right sided abdominal pain crampy in nature 4- 810 for >48 hrs. Some loose stools over the last month and dyspepsia. No chronic diarrhea or blood in stool. He is adopted and isn't aware of family hx. No fever, chills or emesis. CT scan shows intussusception of ileocolic junction. Stranding that could represent inflammation. No evidence of appendicitis. Discharge Providers Provider Date of admission: 10/23/20 19:42 Discharge Date: 10/28/20 Discharge provider: Katia Briones MD Summary Hospital Course Discharge Diagnosis: ielocolic intssuception. s/P right colectomy. Mass vs fibrosis in cecum as lead point. Awaiting pathology. Hospital Course: Urinary retention post op that resolved. No complications Status at Discharge Cognitive/behavioral status at discharge: at baseline, oriented Functional status at discharge: independent ambulation Overall status at discharge: patient is back to baseline Time Spent with Patient Time spent: Greater than 30 minutes Exam Vital Signs (past 8 hours): - 10/28/20 05:44 10/28/20 08:00 Temperature 97.4 F L 97.9 F Pulse Rate 76 87 Respiratory Rate 16 16 Blood Pressure 130/88 146/93 H Pulse Oximetry 97 97 Oxygen Delivery Method Room Air Oxygen Flow Rate 0 Narrative Exam Narrative: soft abdomen, incision intact, no infection Objective Labs Result Diagrams: 10/28/20 05:25 10/24/20 05:39 Labs: Laboratory Results - last 24 hr 10/27/20 10/28/20 14:57 05:25 Hct 27.5 L 26.7 L PFSH Medical History GERD (gastroesophageal reflux disease) Social History household members: spouse Smoking Status: Never smoker Discharge Assessment & Plan Assessment and Plan Assessment: s/p right colectomy due to intussusception. Plan of Treatment: Home with 2 week follow up to review pathology. No heavy lifting for 4 weeks. Discharge Plan Discharge Plan Patient Disposition: Home Discharge orders & Medications Prescriptions: New celecoxib [Celebrex] 100 mg Capsule 200 mg PO BID Qty: 30 RF: 0 oxycodone 10 mg Tablet 10 mg PO Q4HR PRN (Reason: Pain, Severe (7-10)) Qty: 30 RF: 0 Follow up/Referrals: Katia Briones MD [Physician] - Diet/Activity/Treatments Diet: Diet as Tolerated Activity: no lifting greater than 15 lbs for 4 weeks. Skin/Wound/Dressing Care Report to your healthcare provider any signs of infection, such as:: chills, fever, increased pain, unusual drainage and unusual redness Dressing: remove steri strips after 10 days Visit Report/Discharge Packet Instructions: DI for Colectomy, Oxycodone, Celecoxib, [facility]: Wound Care Stand Alone Forms: Surgery Discharge Quality VTE Deep Vein Thrombosis/Pulmonary Embolism Present on Admission: No
--- NOTE | 2020-10-28 11:35 | PC.NURSE ---
Discharge note: Discharge instructions given to patient, discussed importance of F/U with Surgery in 2 weeks, dressing care, new medications, and s/sx of infection. Both patient and spouse verbalized understanding of instructions. Home via private vehicle accompanied by spouse.
--- NOTE | 2020-10-28 15:41 | CM.DPC ---
DCP Discharge Home Per MD, pt is medically stable to d/c home today with no identified discharge planning needs or barriers. Pt was having liquid stool but abdomen no longer distended and able to tolerate diet. Plan: Patient discharged home today via POV and no further SW needs. JASON Harden
== END 2020-10-28 12:00 | disposition home or self-care (01) | DRG 330 ==
LOC: ED 19:41 → AC 19:45
PROVIDERS: Emergency Medicine; Admitting Provider Surgery; Emergency Provider Emergency Medicine; Referring Provider Emergency Medicine; Visit Provider Surgery
PROC: 0DTF0ZZ Resection of Right Large Intestine, Open Approach (ICD-10-PCS; CPT 49000; principal; 2020-10-24 09:15)
DX: C18.8 Malignant neoplasm of overlapping sites of colon (principal); K56.1 Intussusception; R33.9 Retention of urine, unspecified; R59.1 Generalized enlarged lymph nodes; Z20.822 Contact with and (suspected) exposure to COVID-19
CPT/HCPCS: 36415; 44140; 44955; 74022; 74177; 80048; 80053; 81003; 81015; 83605; 83690; 85014; 85025; 87635; 93005; 93010; 94760; 96361; 96374; 96375; 99222; 99284; C9803; C9113; J0131; J0330; J1100; J1170; J1644; J1885; J1956; J2060; J2250; J2405; J2704; J3010; Q9967

== ENCOUNTER → 2020-11-05 08:45 | Outpatient (CLI) | payer OTHER, SELFPAY ==
[2020-10-23 21:05] VITALS: BMI 23.3
--- NOTE | 2020-11-05 08:50 | DI.CT.S_ITS ---
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 1 mm axial lung, 5 mm thick coronal and sagittal reformats and 7 mm axial MIP were acquired. For radiation dose reduction, the following was used: automated exposure control, adjustment of mA and/or kV according to patient size. COMPARISON: [facility], CT, CT ABDOMEN PELVIS W CON, 10/23/2020, 18:57. FINDINGS: Image quality: Excellent. Lungs and pleura: No acute air space opacities. Tiny calcified granuloma. No pleural effusions or pneumothorax. Central and peripheral airways are patent and normal in caliber. Mediastinum: Heart size is normal. No pericardial effusion. No mediastinal or hilar adenopathy by size criteria. Thoracic aorta and central pulmonary arteries are normal in size. Esophagus is normal in caliber. No hiatal hernia. Bones and chest wall: No suspicious bony lesions. No vertebral body compression fractures. No axillary or supraclavicular adenopathy by size criteria. Thyroid gland is unremarkable. Suspect mild gynecomastia. Abdomen: Small splenule. Visualized upper abdominal solid organs appear normal. Upper abdominal bowel loops are normal in caliber. IMPRESSION: No mass or adenopathy in the chest. Dictated by: Altaf Cardozo M.D. on 11/05/2020 at 10:37 Approved by: Altaf Cardozo M.D. on 11/05/2020 at 10:43
--- NOTE | 2020-12-16 09:47 | ONC.SCHED ---
Patient called to cancel today's appointment as he received a positive covid result yesterday. He began experiencing symptoms on Wednesday. I will inform Dr. Kearns with this note.
== END ==
PROVIDERS: Referring Provider Specialist; Visit Provider Specialist
DX: C18.2 Malignant neoplasm of ascending colon (principal)
CPT/HCPCS: 71260

== ENCOUNTER 2020-11-29 10:46 | Day surgery (SDC) | payer OTHER, SELFPAY ==
[2020-10-23 21:05] VITALS: BMI 23.3
[2020-11-29 11:18] VITALS: BP 142/95; PULSE 76; RESP 16; TEMP 36.4; O2SAT 99; BMI 25.8
[2020-11-29] MEDS: LACTATED RINGERS 1,000 ML 100 ML IV (11:40)
--- NOTE | 2020-11-29 11:57 | PM.PREOP ---
Pre-operative Note COVID-19 COVID-19 status: Negative Result date/Date tested (Pos, Neg/Pending): 11/28/20 Interval Note History & Physical reviewed/Exam performed by Physician: Yes Changes to H&P: No ASA Class (for procedural sedation): II
--- NOTE | 2020-11-29 12:43 | PM.HP.1 ---
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 He had a right hemicolectomy done emergently due to an intussusception which turned out to be a colon cancer. Patient History Medical History (Updated 11/29/20 @ 12:47 by Veto Kelley MD) GERD (gastroesophageal reflux disease) Hypertension Guzman syndrome Surgical History (Updated 11/29/20 @ 12:47 by Veto Kelley MD) Status post left foot surgery Status post right hemicolectomy Family & Social History Family History (Updated 11/29/20 @ 12:48 by Veto Kelley MD) Other Adopted Social History: household members spouse Tobacco & Substance use: Smoking Status Former smoker alcohol intake current alcohol intake frequency 0-2 drinks per day Substance Use Type does not use Meds Home Medications and Allergies Home Medications Medication Instructions Recorded Confirmed Type No Known Home Medications 11/29/20 11/29/20 History Allergies Allergy/AdvReac Type Severity Reaction Status Date / Time No Known Drug Allergies Allergy Verified 11/29/20 11:16 Review of Systems Review of Systems Narrative: No cough cold or asthma no heart disease no black or bloody bowel movements no seizures or blackouts Exam Vital Signs (past 8 hours): - 11/29/20 11:18 Temperature 97.5 F L Pulse Rate 76 Respiratory Rate 16 Blood Pressure 142/95 H Pulse Oximetry 99 Oxygen Delivery Method Room Air Narrative Exam Narrative: Pleasant cooperative patient no apparent distress. Lungs are clear to auscultation. No rales or rhonchi. Heart regular rate and rhythm no murmur gallop. Abdomen is soft nontender without mass. No obvious hernias. Patient is alert and oriented x3. Assessment & Plan Assessment & Plan narrative: Plan EGD and colonoscopy due to his recent diagnosis of Guzman syndrome. He does not have a family history due the fact he is adopted. All questions were answered. I have discussed the procedures and the rationale with the patient including risks of bleeding, perforation which would necessitate a major operation, failure to find remove all lesions and the potential to tattoo. He appeared to understand and wished to proceed.
[2020-11-29] MEDS: LIDOCAINE 4% SOLN 50 ML 20 ML TOP (13:18)
[2020-11-29] MEDS: MIDAZOLAM 5 MG/5 ML VIAL IV (13:18)
--- NOTE | 2020-11-29 13:18 | PM.OP.ENDO ---
Operative Date/Time/Diagnoses Date of procedure: 11/29/20 Time of procedure: 13:18 Pre-op diagnosis: Recent diagnosis of Guzman syndrome. Recent emergent resection for unsuspected colon cancer. No prior history of either an upper or lower endoscopy. Post-op diagnosis: same (Normal exams) Procedure & Clinicians Study performed: EGD and colonoscopy Same procedure as scheduled: Yes Indications: Newly diagnosis of Guzman syndrome. Surgeon: Veto Kelley Procedure Notes SCOAP/Timeout: Performed Procedure in detail: The patient had topical anesthetic applied to oropharynx. She was placed in the left lateral decubitus position and underwent IV sedation directed by the surgeon consisting of fentanyl and Versed. A bite block was inserted and the scope was advanced through it into the esophagus. The esophagus was unremarkable. GE junction was noted at 40 cm from the incisors there was a Schatzki ring without any evidence of narrowing.. The stomach insufflated well. There were no lesions seen in the body, antrum or at the incisura. The pyloric channel was patent. The duodenum was unremarkable to somewhere beyond 4th part. Scope was brought back into the stomach and retroflexed. The proximal stomach normal in appearance. No evidence of a hiatal hernia.. The scope was straightened and brought out through the esophagus again. No lesions were seen. The scope was removed and the patient tolerated the procedure well. The patient was repositioned. He underwent additional IV sedation directed by the surgeon consisting of fentanyl and Versed. Digital exam was unremarkable. His prostate is palpably normal.. The scope was inserted and advanced through the rectum into the sigmoid, descending, and transverse colon. I identified the ilio-colonic anastomosis and cannulated the distal small bowel. The scope was gradually brought out The scope was gradually brought out. No Polyps were found. The scope ultimately was retroflexed in the rectum. The appearance was normal. The scope was removed and the patient tolerated the procedure well. the prep was very good. Scope withdrawal time: 4 minutes Sedation minutes: 25 Specimen(s): none sent Complications: none Impression: Normal exams. Post-procedure Recommendations: Colonscopy in 1 year and EGD in 1 year Plan for aftercare: Follow-up with Oncology. Follow up: as needed Disposition: PACU
[2020-11-29] MEDS: fentaNYL 250 MCG/5 ML INJ IV (13:19)
[2020-11-29 13:23] VITALS: BP 122/75; PULSE 78; RESP 12; TEMP 36.4; O2SAT 95
[2020-11-29 13:27] VITALS: BP 114/71; PULSE 80; RESP 8; O2SAT 99
[2020-11-29 13:32] VITALS: BP 119/78; PULSE 84; RESP 11; O2SAT 96
[2020-11-29 13:38] VITALS: BP 129/91; PULSE 93; RESP 10; O2SAT 99
[2020-11-29 14:14] VITALS: BP 131/84; PULSE 83; TEMP 36.8; O2SAT 99
== END 2020-11-29 14:46 | disposition home or self-care (01) ==
PROVIDERS: Referring Provider Specialist; Visit Provider Specialist
PROC: 0DJ08ZZ Inspection of Upper Intestinal Tract, Via Natural or Artificial Opening Endoscopic (ICD-10-PCS; CPT 43235; principal; 2020-11-29 11:45)
PROC: 0DJD8ZZ Inspection of Lower Intestinal Tract, Via Natural or Artificial Opening Endoscopic (ICD-10-PCS; CPT 45378; 2020-11-29 11:45)
DX: C18.9 Malignant neoplasm of colon, unspecified (principal); Z15.09 Genetic susceptibility to other malignant neoplasm; Z90.49 Acquired absence of other specified parts of digestive tract; K21.9 Gastro-esophageal reflux disease without esophagitis; I10 Essential (primary) hypertension; K22.2 Esophageal obstruction
CPT/HCPCS: 43235; 45378; 99152; J2250; J3010

== ENCOUNTER → 2021-01-07 11:03 | Outpatient (CLI) | payer OTHER, SELFPAY ==
[2020-10-23 21:05] VITALS: BMI 23.3
[2021-01-07 11:40] LABS: COVID19 -Nasal RAPID Negative (Negative)
== END ==
PROVIDERS: Visit Provider Specialist
DX: Z01.812 Encounter for preprocedural laboratory examination (principal); Z20.822 Contact with and (suspected) exposure to COVID-19
CPT/HCPCS: 87635

== ENCOUNTER 2021-01-07 14:50 | Day surgery (SDC) | payer OTHER, SELFPAY ==
[2020-10-23 21:05] VITALS: BMI 23.3
[2021-01-07] VITALS (7 sets, daily range): BP systolic 128–142; BP diastolic 87–95; PULSE 72–81; RESP 10–19; TEMP 36.4–37.1; O2SAT 97–100; BMI 27.4
[2021-01-07] MEDS: LACTATED RINGERS 1,000 ML 100 ML IV (16:11)
--- NOTE | 2021-01-07 16:11 | PM.HP.1 ---
History of Present Illness History of Present Illness Date Patient Seen: 01/07/21 Time Patient Seen: 16:11 [place] [facility] [place]arrative: 30 M with stage II colon cancer here for port a cath placement. Underwent right hemicolectomy for intussecption was incidentally found to have colon cancer pT3N0 with high risk features. No previous indwelling venous catheters. Not on anticoagulation. Patient History Medical History COVID-19 (11/2020) GERD (gastroesophageal reflux disease) Hypertension Guzman syndrome Surgical History Status post left foot surgery Status post right hemicolectomy (11/25/20) Family & Social History Family History Other Adopted Social History: household members spouse Tobacco & Substance use: Smoking Status Former smoker alcohol intake current alcohol intake frequency 0-2 drinks per day Substance Use Type does not use Meds Home Medications and Allergies Home Medications Medication Instructions Recorded Confirmed Type fluorouracil 2.5 gram/50 mL See Rx Instructions .ROUTE 12/30/20 01/01/21 Rx intravenous solution .COMPLEX #1 device Allergies Allergy/AdvReac Type Severity Reaction Status Date / Time No Known Drug Allergies Allergy Verified 01/07/21 16:02 Review of Systems Review of Systems ROS: Yes All systems reviewed with the patient and are negative except as otherwise documented Exam Vital Signs (past 8 hours): - 01/07/21 16:06 Temperature 97.6 F Pulse Rate 78 Respiratory Rate 16 Blood Pressure 142/89 H Pulse Oximetry 100 Oxygen Delivery Method Room Air Narrative Exam Narrative: Constitutional-he is oriented to person, place and time. No apparent distress Cardiovascular- regular rate, no peripheral edema Pulmonary-unlabored respiratory effort, no audible wheezing Abdominal-soft, non-tender, non-distended Musculoskeletal-no cyanosis or clubbing Neurological-nonfocal, normal strength throughout, normal gait. Skin-warm and dry Assessment & Plan Assessment and plan (1) Colon cancer high risk: Status: Acute Assessment & Plan narrative: 30male with stage II colon cancer with high risk features status post colectomy with plan for adjuvant chemotherapy. Will need port a cath. Technical details of the procedure was discussed. Operative risks including bleeding, infection, embolism, damage to surrounding structures pneumothorax were discussed. Questions answered he is in agreement with this plan.
[2021-01-07] MEDS: CEFAZOLIN 1 GM VIAL 2 GM IV (16:40)
[2021-01-07] MEDS: BUPIVACAINE 0.25% (PF) VIAL 30 ML INJ (16:53)
[2021-01-07] MEDS: HEPARIN 5,000 UNIT, SODIUM CHLORIDE 0.9% 50 ML IV (16:54)
--- NOTE | 2021-01-07 17:30 | DI.RAD.S_ITS ---
PROCEDURE: XR CHEST 1V INDICATIONS: PORT A CATH TECHNIQUE: One view of the chest was acquired. COMPARISON: None. FINDINGS: Surgical changes and devices: Port-A-Cath from right-sided approach extends cephalad and then caudad in the expected area of the right jugular vein, reaching what is expected to be the confluence of the right and left subclavian veins but not extending directly into the superior vena cava. Lungs and pleura: Lungs are clear. No pleural effusions or pneumothorax. Mediastinum: Mediastinal contours appear normal. Heart size is normal. Bones and chest wall: No suspicious bony lesions. Overlying soft tissues appear unremarkable. IMPRESSION: Port-A-Cath from right-sided approach as discussed, without associated pneumothorax. Dictated by: Fredy Martin M.D. on 01/08/2021 at 8:38 Approved by: Fredy Martin M.D. on 01/08/2021 at 8:39
--- NOTE | 2021-01-07 17:30 | PM.OP.1 ---
Operative Date/Time/Diagnoses Date of procedure: 01/07/21 Time of procedure: 17:30 Pre-op diagnosis: Colon cancer Post-op diagnosis: same Procedure & Clinicians Procedure: Port-A-Cath placement with ultrasound guidance Same procedure as scheduled: Yes Indications: Colon cancer Surgeon: Perez Sutton Anesthesia Type: General Operative Notes Findings: Tip of the catheter within the SVC. Specimen(s): none sent Estimated Blood Loss (mL): 10 Procedure in detail: Patient was brought to the operating room placed supine on table. Bilateral lower extremity compressive devices were applied. General anesthesia was induced and he was intubated with an LMA. He was then prepped and draped in usual sterile fashion. Time-out was performed ensure the correct patient procedure necessary equipment within the operating room. He received 2 g of Ancef prior to incision. Under ultrasound guidance the right internal jugular vein was accessed under direct visualization. The guidewire was then threaded through the needle. Its placement was then confirmed using fluoroscopy. The dilator was then placed over the guidewire. The catheter was then inserted through the sheath. Placement was again confirmed with fluoroscopy. A subcutaneous pocket was made in the right chest wall. The tunneler device was used to move the catheter from the neck to the chest pocket. The port was attached after it was primed with heparined saline. The port was tested to ensure that it flushed easily and had good blood return. The port was then secured to the underlying fascia using interupted Ethibond. Hemostasis was achieved. The wound was irrigated with sterile saline. The subcutaneous tissues were reapproximated with the 3 0 Vicryl and then skin closed with 4-0 Monocryl. The skin was sealed with Dermabond. Patient tolerated procedure well. The sponge and instrument count at the end operation was correct. Patient emerged from general anesthesia was extubated and taken to the postoperative care unit in stable condition Complications: none Post-operative Condition: stable Disposition: same day surgery
[2021-01-07] MEDS: OXYCODONE IR 5 MG TABLET PO (17:54)
[2021-01-07] MEDS: ACETAMINOPHEN 325 MG TABLET 650 MG PO (17:54)
== END 2021-01-07 18:14 | disposition home or self-care (01) ==
PROVIDERS: Referring Provider Surgery; Visit Provider Surgery
PROC: (CPT 36561; principal; 2021-01-07 16:15)
DX: C18.9 Malignant neoplasm of colon, unspecified (principal); Z15.09 Genetic susceptibility to other malignant neoplasm; Z86.16 Personal history of COVID-19; I10 Essential (primary) hypertension; K21.9 Gastro-esophageal reflux disease without esophagitis; Z01.812 Encounter for preprocedural laboratory examination; Z20.822 Contact with and (suspected) exposure to COVID-19
CPT/HCPCS: 36561; 71045; 76000; 82962; 87635; C1788; C9803; J0690; J1644; J2405; J2704; J3010